=== PATIENT | female | born 1970 | race African-American/Black ===

== ENCOUNTER → 2019-05-04 | Outpatient (CLI) | payer OTHER | LOC: YHH 13:53 ==

== ENCOUNTER 2021-11-20 16:21 | Emergency (ER) | payer OTHER ==
[2021-11-20 16:29] VITALS: BP 125/72; PULSE 100; TEMP 98.1; BMI 41.1
[2021-11-20] MEDS ORDERED: IBUPROFEN 400 MG TABLET (FP) PO ONE ×2 (17:13→17:22)
== END 2021-11-20 18:27 | disposition home or self-care (01) ==
LOC: JERFT 16:21
PROC: 0H96XZZ Drainage of Back Skin, External Approach (ICD-10-PCS; principal; 2021-11-20)
DX: L02.212 Cutaneous abscess of back [any part, except buttock and flank] (principal)
CPT/HCPCS: 99283-25

== ENCOUNTER 2021-11-27 11:24 | Emergency (ER) | payer OTHER ==
[2021-11-27 11:57] VITALS: BP 131/86; PULSE 79; TEMP 98; BMI 42.0
== END 2021-11-27 12:28 | disposition home or self-care (01) ==
LOC: JERFT 11:24
DX: Z48.00 Encounter for change or removal of nonsurgical wound dressing (principal)
CPT/HCPCS: 99281-25

== ENCOUNTER 2022-01-15 12:05 | Emergency (ER) | payer OTHER ==
[2022-01-15 12:32] VITALS: BP 162/100; PULSE 87; TEMP 98.3; BMI 41.3
[2022-01-15] MEDS ORDERED: KETOROLAC TROMETHAMINE 30 MG/1 ML VIAL IM ONE (13:13)
[2022-01-15] MEDS ORDERED: KETOROLAC TROMETHAMINE 30 MG/1 ML VIAL ONE (13:23)
== END 2022-01-15 14:40 | disposition home or self-care (01) ==
LOC: JER 12:05
PROC: 3E023GC Introduction of Other Therapeutic Substance into Muscle, Percutaneous Approach (ICD-10-PCS; principal; 2022-01-15)
DX: M25.561 Pain in right knee (principal)
CPT/HCPCS: 73562-TC-RT-FY; 96372; 99284-25

== ENCOUNTER 2023-02-04 14:32 | Emergency (ER) | payer OTHER ==
[2023-02-04 14:44] VITALS: RESP 18; BMI 39.4
[2023-02-04] MEDS ORDERED: ACETAMINOPHEN 325 MG TABLET (FP) PO ONE (15:34)
[2023-02-04] MEDS ORDERED: ACETAMINOPHEN 325 MG TABLET (FP) ONE (15:46)
[2023-02-04 17:17] VITALS: BP 156/96; PULSE 72; TEMP 99.2
== END 2023-02-04 17:20 | disposition home or self-care (01) ==
LOC: JER 14:32
DX: M79.662 Pain in left lower leg (principal); M71.22 Synovial cyst of popliteal space [Baker], left knee
CPT/HCPCS: 93971-TC; 99284-25

== ENCOUNTER 2024-08-12 08:46 | Inpatient (IN) | payer OTHER ==
[2024-08-12 10:15] LABS: BASO % 0.4 % (0-2.0); EOS % 2.2 % (0-4.5); HEMATOCRIT 37.3 % (32.4-45.2); HEMOGLOBIN 12.3 GM/dL (10.7-15.3); LYMPH % 46.7 % (8-40); MCH 28.1 pg (25.7-33.7); MCHC 33.1 g/dl (32.0-36.0); MEAN CELL VOLUME 85.1 fl (80-96); MEAN PLT VOLUME 7.1 fl (7.5-11.1); MONO % 9.3 % (3.8-10.2); NEUT % 41.4 % (42.8-82.8); PLATELET COUNT 238 10^3/uL (134-434); RBC 4.38 M/mm3 (3.60-5.2); RDW 13.5 % (11.6-15.6); WHITE BLOOD COUNT 4.9 K/mm3 (4.0-10.0)
[2024-08-12 10:59] LABS: POTASSIUM 4.4 mmol/L (3.5-5.1)
[2024-08-12 11:01] LABS: CALCIUM 9.3 mg/dL (8.5-10.1)
[2024-08-12 11:02] LABS: ALBUMIN 3.5 g/dl (3.4-5.0); BLOOD UREA NITROGEN 20.2 mg/dL (7-18)
[2024-08-12 11:05] LABS: CREATININE 0.9 mg/dL (0.55-1.3)
[2024-08-12 11:06] LABS: BILIRUBIN,TOTAL 0.3 mg/dL (0.2-1); TOT PROT 7.2 g/dl (6.4-8.2)
[2024-08-12] MEDS: SODIUM CHLORIDE 0.9% 500 ML INFUS.BAG IV ONE (15:05)
[2024-08-12] MEDS: SODIUM CHLORIDE 1,000 ML IV STA (15:06)
[2024-08-12] MEDS: HEPARIN NA (PORCINE) 5,000 UNITS/ML 1ML VIAL SQ SCH (15:29)
[2024-08-12 15:53] VITALS: RESP 18; BMI 40.6
[2024-08-12] MEDS: SODIUM CHLORIDE 1,000 ML IV SCH (17:57)
[2024-08-12] MEDS: MELATONIN 5 MG TABLETS PO PRN (23:07)
[2024-08-13] MEDS ORDERED: methaDONE HCL 40 MG DISPERSABLE TABLET PO SCH (08:45)
[2024-08-13] MEDS: BICTEGRAV/EMTRICIT/TENOFOV (BIKTARVY) 50-200-25 MG TABLET PO SCH (09:31)
[2024-08-13 10:24] VITALS: BP 117/85; PULSE 65; TEMP 98.6
[2024-08-13 10:41] LABS: HEMATOCRIT 36.5 % (32.4-45.2); HEMOGLOBIN 12.2 GM/dL (10.7-15.3); MCH 28.8 pg (25.7-33.7); MCHC 33.5 g/dl (32.0-36.0); MEAN CELL VOLUME 85.9 fl (80-96); MEAN PLT VOLUME 7.6 fl (7.5-11.1); PLATELET COUNT 239 10^3/uL (134-434); RBC 4.24 M/mm3 (3.60-5.2); RDW 13.3 % (11.6-15.6); WHITE BLOOD COUNT 4.7 K/mm3 (4.0-10.0)
[2024-08-13 11:01] LABS: POTASSIUM 5.1 mmol/L (3.5-5.1)
[2024-08-13 11:04] LABS: ALBUMIN 3.3 g/dl (3.4-5.0); CALCIUM 9.1 mg/dL (8.5-10.1)
[2024-08-13 11:05] LABS: BLOOD UREA NITROGEN 17.7 mg/dL (7-18); MAGNESIUM 1.5 mg/dL (1.8-2.4)
[2024-08-13 11:08] LABS: CREATININE 0.9 mg/dL (0.55-1.3); PHOSPHOROUS 3.2 mg/dL (2.5-4.9)
[2024-08-13 11:09] LABS: BILIRUBIN,TOTAL 0.3 mg/dL (0.2-1)
[2024-08-13] MEDS ORDERED: MAGNESIUM OXIDE 400 MG TABLET (FP) PO ONE (13:54)
== END 2024-08-13 13:55 | disposition home or self-care (01) | DRG 351 ==
LOC: JER 08:46 → JERBED 11:26 → J6S 14:42
PROVIDERS: ADMIT Internal Medicine; ATTEND Internal Medicine
DX: M62.82 Rhabdomyolysis (principal); E11.9 Type 2 diabetes mellitus without complications; Z79.84 Long term (current) use of oral hypoglycemic drugs; I10 Essential (primary) hypertension; Z21 Asymptomatic human immunodeficiency virus [HIV] infection status; T46.6X5A Adverse effect of antihyperlipidemic and antiarteriosclerotic drugs, initial encounter
CPT/HCPCS: 36415; 80048; 80053; 82550; 82553; 83735; 84100; 85025; 85027; 85730; 93005; 93010; 99285-25; J1644

== ENCOUNTER 2024-11-11 07:38 | Day surgery (SDC) | payer OTHER ==
[2024-11-10 15:36] VITALS: BMI 39.3
[2024-11-11 10:19] VITALS: PULSE 66; RESP 16; TEMP 97.8
[2024-11-11 10:52] VITALS: BP 111/65
== END 2024-11-11 11:03 | disposition home or self-care (01) ==
LOC: JASU-ENDO 07:38
PROVIDERS: ATTEND Internal Medicine Gastroenterology
PROC: 0DJD8ZZ Inspection of Lower Intestinal Tract, Via Natural or Artificial Opening Endoscopic (ICD-10-PCS; principal; 2024-11-11 09:30)
DX: Z12.11 Encounter for screening for malignant neoplasm of colon (principal); K57.30 Diverticulosis of large intestine without perforation or abscess without bleeding; I10 Essential (primary) hypertension; E11.9 Type 2 diabetes mellitus without complications; Z79.84 Long term (current) use of oral hypoglycemic drugs
CPT/HCPCS: 82962